=== PATIENT | female | born 1945 | race Caucasian/White ===

== ENCOUNTER 2017-10-25 10:28 | Outpatient (CLI) | payer MEDICARE ==
--- NOTE | 2017-10-25 16:38 | MMO ---
MAMMOGRAM DIGITAL SCREENING BILATERAL: DATE: 10/25/17 HISTORY: 72-year-old female for routine bilateral screening mammogram. COMPARISON: 08/28/14, 09/24/15, and 10/20/16. TECHNIQUE: Digital mammographic views. Computer-aided detection (CAD) utilized. FINDINGS: The breasts are heterogeneously dense, which may obscure small masses. There is no evidence of suspicious mass, suspicious calcifications, or architectural distortion. The re is no significant interval change since the prior mammogram. IMPRESSION: 1) BIRADS 1- Negative. 2) Recommendation: routine bilateral annual screening mammogram (unless the patient develops suspicio us clinical findings that would warrant earlier imaging follow up). kb [] POS: DENISE
== END 2017-10-25 10:29 | disposition home or self-care (01) ==
LOC: SCSMAMMO 10:28
PROVIDERS: ATTEND Obstetrics & Gynecology
DX: Z12.31 Encounter for screening mammogram for malignant neoplasm of breast (principal)
CPT/HCPCS: 77067